=== PATIENT | female | born 1970 | race Two or more races ===

== ENCOUNTER 2020-01-26 18:54 | Inpatient (IN) | payer OTHER ==
[~2020-01-26] VITALS: Ht 167.6 cm; Wt 74.4 kg
--- NOTE | 2020-01-26 19:26 | NUR ---
pt out of er for ct
[2020-01-26 20:14] LABS: BASOPHILS % (AUTO) 0.6 % (0.0-2.0); EOSINOPHILS # (AUTO) 0.1 K/uL (0.0-0.7); EOSINOPHILS % (AUTO) 1.4 % (0.0-7.0); HEMATOCRIT 30.4 % (31.2-41.9); HEMOGLOBIN 9.9 g/dL (10.9-14.3); LYMPHOCYTES # (AUTO) 0.6 K/uL (20.0-40.0); LYMPHOCYTES % (AUTO) 8.9 % (20.5-51.5); MEAN CORPUSCULAR HEMOGLOBIN 31.8 uug (24.7-32.8); MEAN CORPUSCULAR HGB CONC 33 g/dL (32.3-35.6); MEAN CORPUSCULAR VOLUME 97.8 fL (75.5-95.3); MONOCYTES # (AUTO) 0.4 K/uL (2.0-10.0); MONOCYTES % (AUTO) 6.5 % (0.0-11.0); NEUTROPHILS # (AUTO) 5.6 K/uL (1.8-8.9); NEUTROPHILS % (AUTO) 82.6 % (38.5-71.5); PLATELET COUNT (AUTO) 139 K/uL (179-408); RED BLOOD CELL COUNT(AUTO) 3.11 MIL/uL (3.63-4.92); WHITE BLOOD COUNT (AUTO) 6.7 K/uL (3.8-11.8)
[2020-01-26 20:20] LABS: CREATININE 5.9 mg/dL (0.6-1.3)
[2020-01-26 20:26] LABS: BILIRUBIN,DIRECT 0.2 mg/dL (0.0-0.2); BILIRUBIN,TOTAL 0.6 mg/dL (0.2-1.0); TOTAL PROTEIN, SERUM 7.5 g/dL (6.4-8.2)
[2020-01-26] MEDS ORDERED: SODIUM BICARBONATE 8.4% 50 MEQ/50 ML DISP.SYRIN IV ONE ×2 (20:30→20:40)
[2020-01-26] MEDS ORDERED: FUROSEMIDE 20 MG/2 ML VIAL IVP ONE (20:30)
[2020-01-26 20:35] LABS: MAGNESIUM 2.6 mg/dL (1.8-2.4); PHOSPHOROUS 2.2 mg/dL (2.5-4.9)
[2020-01-26] MEDS ORDERED: FUROSEMIDE 20 MG/2 ML VIAL ONE (20:39)
[2020-01-26] MEDS ORDERED: SODIUM POLYSTYRENE SULFONATE 15 G/60 ML LIQUID UDC ONE (20:39)
--- NOTE | 2020-01-26 20:43 | NUR ---
MD CHILDS PAGED AT THIS TIME, FIRST ATTEMPT
[2020-01-26] MEDS ORDERED: MAGNESIUM HYDROXIDE 30 ML LIQUID UDC PO PRN (20:45)
[2020-01-26] MEDS ORDERED: ACETAMINOPHEN 325 MG TABLET PO PRN (20:45)
[2020-01-26] MEDS ORDERED: DEXTROSE 50% 50 ML DISP.SYRIN IV PRN (20:45)
[2020-01-26] MEDS ORDERED: INSULIN REGULAR, HUMAN 300 UNITS/3 ML VIAL SQ PRN (20:45)
[2020-01-26] MEDS ORDERED: Z GUARD REMEDY PASTE 57 GM TUBE TOP PRN (20:45)
[2020-01-26] MEDS ORDERED: HYDROCODONE/APAP 5-325MG TABLET PO PRN (20:45)
[2020-01-26] MEDS ORDERED: ONDANSETRON 4 MG/2 ML VIAL IV PRN (20:45)
[2020-01-26] MEDS: SODIUM POLYSTYRENE SULFONATE 15 G/60 ML LIQUID UDC PO ONE ×2 (20:59→22:00)
--- NOTE | 2020-01-26 21:45 | NUR ---
report given to derian baires
--- NOTE | 2020-01-26 22:17 | NUR ---
Pt. admitted to Tele Room 318 , under care of Dr. Villa Belongs List completed. All belongings with pt aa/o x2-3 no s/s of distress respirations even and unlabored transported via gurney with 2 RNs
[2020-01-26 22:26] VITALS: BP 164/72
[2020-01-26] MEDS: BLOOD SUGAR DIAGNOSTIC 1 EACH STRIP VI SCH (22:44)
--- NOTE | 2020-01-26 22:45 | NUR ---
patient refused to be swabbed for MRSA.
[2020-01-27 00:44] VITALS: BP 150/61
[2020-01-27 05:21] VITALS: BP 169/73
[2020-01-27 06:32] LABS: BASOPHILS # (AUTO) 0.1 K/uL (0.0-8.0); BASOPHILS % (AUTO) 0.8 % (0.0-2.0); EOSINOPHILS # (AUTO) 0.1 K/uL (0.0-0.7); HEMATOCRIT 30.1 % (31.2-41.9); LYMPHOCYTES # (AUTO) 0.8 K/uL (20.0-40.0); LYMPHOCYTES % (AUTO) 13.1 % (20.5-51.5); MEAN CORPUSCULAR HEMOGLOBIN 32.4 uug (24.7-32.8); MEAN CORPUSCULAR HGB CONC 33 g/dL (32.3-35.6); MEAN CORPUSCULAR VOLUME 96.9 fL (75.5-95.3); MONOCYTES # (AUTO) 0.5 K/uL (2.0-10.0); MONOCYTES % (AUTO) 8.1 % (0.0-11.0); NEUTROPHILS # (AUTO) 4.9 K/uL (1.8-8.9); PLATELET COUNT (AUTO) 137 K/uL (179-408); WHITE BLOOD COUNT (AUTO) 6.4 K/uL (3.8-11.8)
[2020-01-27] MEDS: BLOOD SUGAR DIAGNOSTIC 1 EACH STRIP VI SCH ×4 (06:43→20:54)
[2020-01-27 06:48] LABS: CREATININE 6.2 mg/dL (0.6-1.3); MAGNESIUM 2.7 mg/dL (1.8-2.4); POTASSIUM 5.4 mmol/L (3.5-5.1)
--- NOTE | 2020-01-27 08:28 | NUR ---
seen by dr vital, aware right eye redness ,will order med, pending dialysis today.
[2020-01-27 11:20] VITALS: BP 161/82
[2020-01-27] MEDS ORDERED: SERT50TA PO (11:28)
[2020-01-27] MEDS ORDERED: MAG30ORA PO (11:28)
[2020-01-27] MEDS ORDERED: CARV12.5 PO (11:28)
[2020-01-27] MEDS ORDERED: ASCO-375 PO (11:28)
[2020-01-27] MEDS ORDERED: GLUC1KIT IM (11:28)
[2020-01-27] MEDS ORDERED: GABA-532 PO (11:28)
[2020-01-27] MEDS ORDERED: AMLO5TAB4 PO (11:28)
[2020-01-27] MEDS ORDERED: VIT1TABL46 PO (11:28)
[2020-01-27] MEDS ORDERED: ASPI81TA31 PO (11:28)
[2020-01-27] MEDS ORDERED: FERR325T28 PO (11:28)
[2020-01-27] MEDS ORDERED: DOCU100C36 PO (11:28)
[2020-01-27] MEDS ORDERED: PANT40TA2 PO (11:28)
[2020-01-27] MEDS ORDERED: ZINC1CAP2 PO (11:28)
[2020-01-27] MEDS ORDERED: PROT946L PO (11:28)
[2020-01-27] MEDS ORDERED: CLON0.1T PO (11:28)
[2020-01-27] MEDS ORDERED: ATOR80TA PO (11:28)
[2020-01-27] MEDS ORDERED: LEVO50TA8 PO (11:28)
[2020-01-27] MEDS ORDERED: ACET650T10 PO (11:28)
[2020-01-27] MEDS ORDERED: SEVE800T8 PO (11:28)
--- NOTE | 2020-01-27 11:30 | NUR ---
dialysis done, tolerated well 2l . Addendum: 01/27/20 at 1145 by JAMIE GOODE RN obtained from dialysis, 21 liters
--- NOTE | 2020-01-27 11:39 | NUR ---
refused mrsa swab , meds reconceliation discussed, agreed with dr vital aware.
[2020-01-27] MEDS ORDERED: DOCUSATE SODIUM 100 MG CAPSULE PO PRN (14:00)
--- NOTE | 2020-01-27 15:00 | NUR ---
sleeping well. no distress noted
[2020-01-27] MEDS: CLONIDINE HCL 0.1 MG TABLET PO PRN (15:32)
[2020-01-27] MEDS: GABAPENTIN 100 MG CAPSULE PO SCH (15:32)
[2020-01-27 15:39] VITALS: BP 178/74
[2020-01-27] MEDS: NEO/POLYMYX B/DEXAM OPHT DROP 5 ML BOTTLE EACHEYE SCH (17:34)
[2020-01-27] MEDS: SEVELAMER CARBONATE 800 MG TABLET PO SCH (17:36)
--- NOTE | 2020-01-27 18:21 | NUR ---
sleeping on and off, resting well. anxious to go home, emotional support provided. prn calls from family, supportive of patient care, pt glad of call.
--- NOTE | 2020-01-27 20:00 | NUR ---
PATIENT RECEIVED INTO CARE, LAYING IN BED, WATCHING TELEVISION. PATIENT IS ALERT/ORIENTED X3 AND HAS NO COMPLAINTS OF PAIN OR DISCOMFORT AT THIS TIME. ALL SAFETY AND FALL PRECAUTION MEASURES ARE IN PLACE. CALL LIGHT AND PERSONAL ITEMS ARE WITHIN REACH. WILL CONTINUE TO MONITOR AND ASSESS.
[2020-01-27 20:05] VITALS: BP 181/75
[2020-01-27] MEDS: CARVEDILOL 12.5 MG TABLET PO SCH (20:55)
[2020-01-27] MEDS: INSULIN REGULAR, HUMAN 300 UNIT/3 ML VIAL SQ PRN (20:55)
[2020-01-27] MEDS: SERTRALINE HCL 50 MG TABLET PO SCH (20:56)
[2020-01-27] MEDS: ATORVASTATIN 40 MG TABLET PO SCH (20:56)
[2020-01-27] MEDS: AMLODIPINE 5 MG TABLET PO SCH (20:56)
--- NOTE | 2020-01-27 20:56 | NUR ---
Patient refused all 2100h medications. This nurse used translation phone to explain the risks/benefits of medications three times, but patient still refused stating she 'won't ' if she doesn't take the medications.
--- NOTE | 2020-01-27 23:45 | NUR ---
This nurse was notified by HANDMADE TILE ARTIST of elevated blood pressure reading for pt during 12mn rounds. This nurse, with the help of scientist/engineer phone, was able to convince pt to take her previously refused 2100h medications, which included coreg 12.mg and norvasc 5mg. Will continue to monitor and assess.
[2020-01-28] VITALS: BP 180/80
[2020-01-28] MEDS: NEO/POLYMYX B/DEXAM OPHT DROP 5 ML BOTTLE EACHEYE SCH ×5 (00:12→23:34)
[2020-01-28 04:30] VITALS: BP 167/67
--- NOTE | 2020-01-28 05:00 | NUR ---
Patient slept intermittently throughout night with no complaints of pain or discomfort verbalized by patient or noted/observed by this nurse. Initially pt refused to take her scheduled 2100h prescribed medications, which included blood pressure medicine, however, pt agreed to take later in the evening when blood pressure was elevated for 12mn rounds. Pt also refused to take prescribed 2100h sliding scale insulin for blood sugar of 138. All safety and fall precaution measures are in place. Call light and personal items remain within reach.
[2020-01-28] MEDS: CLONIDINE HCL 0.1 MG TABLET PO PRN (05:49)
--- NOTE | 2020-01-28 05:54 | NUR ---
This nurse was notified by RUG SETTER VELVET regarding pt's elevated blood pressure of 167/67. This nurse reassessed blood pressure and found it to be 174/75 HR 70. This nurse provided pt with prescribed PRN clonidine for elevated diastolic BP >160. Will continue to monitor and assess.
[2020-01-28] MEDS: BLOOD SUGAR DIAGNOSTIC 1 EACH STRIP VI SCH ×4 (06:32→21:01)
[2020-01-28] MEDS: LEVOTHYROXINE SODIUM 50 MCG TABLET PO SCH (06:32)
--- NOTE | 2020-01-28 06:46 | NUR ---
This nurse reassessed pt's blood pressure following administration of prescribed clonidine. Blood pressure is now 150/69 HR 65. Clonidine effective in lowering blood pressure.
[2020-01-28 06:47] VITALS: BP 150/69
--- NOTE | 2020-01-28 08:00 | NUR ---
RECEIVED PATIENT LAYING IN BED, AWAKE, ALERT AND ORIENTED. NO SIGNS OF RESPIRATORY DISTRESS AT THIS TIME, PATIENT IS SATURATING WELL ON ROOM AIR. PATIENT HAS NO COMPLAINTS OF PAIN OR DISCOMFORT AT THIS TIME. IV PATENT AND INTACT NOT BEING USED ON LEFT HAND 20 GAUGE AND ALSO A RT UPPER ARM FISTULA. PATIENT HAS SOME DISCOLORATION ON BILATERAL LOWER EXTREMITY. ALL SAFETY AND FALL PRECAUTION MEASURES ARE IN PLACE. CALL LIGHT AND PERSONAL ITEMS ARE WITHIN REACH. WILL CONTINUE TO MONITOR AND ASSESS.
[2020-01-28] MEDS: FOLIC ACID/VITAMIN B COMP W-C TABLET PO SCH (09:03)
[2020-01-28] MEDS: ASCORBIC ACID 500 MG TABLET PO SCH (09:03)
[2020-01-28] MEDS: AMLODIPINE 5 MG TABLET PO SCH ×2 (09:07→20:58)
[2020-01-28] MEDS: CARVEDILOL 12.5 MG TABLET PO SCH ×2 (09:07→20:59)
[2020-01-28] MEDS: ZINC SULFATE 220 MG CAPSULE PO SCH (09:07)
[2020-01-28] MEDS: GABAPENTIN 100 MG CAPSULE PO SCH ×3 (09:08→18:05)
[2020-01-28] MEDS: SEVELAMER CARBONATE 800 MG TABLET PO SCH ×3 (09:08→18:04)
[2020-01-28] MEDS: ASPIRIN 81 MG TAB.CHEW PO SCH (09:08)
[2020-01-28] MEDS: FERROUS SULFATE 325 MG TABEC PO SCH (09:08)
[2020-01-28] MEDS: PANTOPRAZOLE SODIUM 40 MG TABLET.DR PO SCH (09:09)
[2020-01-28 10:26] VITALS: BP 148/62
--- NOTE | 2020-01-28 11:36 | NUR ---
GAVE REPORT TO ESTRELLA AND PATIENT TRANSFERRED OUT OF [facility] ISOLATION AREA.
[2020-01-28] MEDS: INSULIN REGULAR, HUMAN 300 UNIT/3 ML VIAL SQ PRN ×2 (12:08→18:09)
[2020-01-28 14:07] LABS: HEPATITIS B SURFACE AB Reactive (.); HEPATITIS B SURFACE AG Negative (Negative)
--- NOTE | 2020-01-28 14:11 | NUR ---
pt. is getting dialysis at this time. pt. in stable condition
[2020-01-28 15:46] VITALS: BP 143/62
--- NOTE | 2020-01-28 19:30 | NUR ---
Received patient lying in bed. Asleep but easily arouse to verbal stimuli. Haitian speaking. Appears calm and comfortable. Denies any pain or SOB at this time. Right FA fistula intact. Left hand IV site intact and patent. Needs assessed and attended to. Safety measure initiated and call noel within reached.
--- NOTE | 2020-01-28 19:35 | NUR ---
Patient NSR on tele at 60/min.
[2020-01-28 19:59] VITALS: BP 151/57
[2020-01-28] MEDS: ATORVASTATIN 40 MG TABLET PO SCH (20:57)
[2020-01-28] MEDS: SERTRALINE HCL 50 MG TABLET PO SCH (20:58)
[2020-01-29 00:14] VITALS: BP 164/61
[2020-01-29 04:55] VITALS: BP 153/70
--- NOTE | 2020-01-29 05:59 | NUR ---
Patient AAOX4. Slept well last night. Denies any pain or SOB. NSR and sinus dalia on tele at bet. 60 to high 50's./min. Right FA fistula intact. Left hand IV site intact and patent. Safety measure maintained and call noel within reached.
[2020-01-29 06:07] LABS: BASOPHILS # (AUTO) 0.1 K/uL (0.0-8.0); BASOPHILS % (AUTO) 1.2 % (0.0-2.0); EOSINOPHILS # (AUTO) 0.2 K/uL (0.0-0.7); EOSINOPHILS % (AUTO) 3.1 % (0.0-7.0); HEMATOCRIT 28.6 % (31.2-41.9); HEMOGLOBIN 9.5 g/dL (10.9-14.3); LYMPHOCYTES # (AUTO) 0.7 K/uL (20.0-40.0); LYMPHOCYTES % (AUTO) 13.7 % (20.5-51.5); MEAN CORPUSCULAR HGB CONC 33 g/dL (32.3-35.6); MEAN CORPUSCULAR VOLUME 96.3 fL (75.5-95.3); MONOCYTES # (AUTO) 0.3 K/uL (2.0-10.0); MONOCYTES % (AUTO) 7.1 % (0.0-11.0); NEUTROPHILS # (AUTO) 3.7 K/uL (1.8-8.9); NEUTROPHILS % (AUTO) 74.9 % (38.5-71.5); PLATELET COUNT (AUTO) 88 K/uL (179-408); RED BLOOD CELL COUNT(AUTO) 2.97 MIL/uL (3.63-4.92); WHITE BLOOD COUNT (AUTO) 4.9 K/uL (3.8-11.8)
[2020-01-29] MEDS: NEO/POLYMYX B/DEXAM OPHT DROP 5 ML BOTTLE EACHEYE SCH ×3 (06:07→17:30)
[2020-01-29 06:13] LABS: CREATININE 4.6 mg/dL (0.6-1.3)
[2020-01-29] MEDS: LEVOTHYROXINE SODIUM 50 MCG TABLET PO SCH (06:30)
[2020-01-29] MEDS: BLOOD SUGAR DIAGNOSTIC 1 EACH STRIP VI SCH ×3 (06:31→16:30)
--- NOTE | 2020-01-29 08:00 | NUR ---
received pt. resting in bed alert oriented x3 romanian speaking. pt. denies pain/ discomfort. pt. denies SOB/ difficulty breathing. pt. on room air saturating well. pt. took all AM medication and is eating breakfast. safety measures in place. call light within reach. will continue to monitor pt.
[2020-01-29] MEDS: PANTOPRAZOLE SODIUM 40 MG TABLET.DR PO SCH (08:09)
[2020-01-29] MEDS: FERROUS SULFATE 325 MG TABEC PO SCH (08:09)
[2020-01-29] MEDS: ZINC SULFATE 220 MG CAPSULE PO SCH (08:09)
[2020-01-29] MEDS: SEVELAMER CARBONATE 800 MG TABLET PO SCH ×3 (08:09→17:28)
[2020-01-29] MEDS: GABAPENTIN 100 MG CAPSULE PO SCH ×3 (08:09→17:28)
[2020-01-29] MEDS: FOLIC ACID/VITAMIN B COMP W-C TABLET PO SCH (08:09)
[2020-01-29] MEDS: ASCORBIC ACID 500 MG TABLET PO SCH (08:09)
[2020-01-29] MEDS: ASPIRIN 81 MG TAB.CHEW PO SCH (08:10)
[2020-01-29] MEDS: AMLODIPINE 5 MG TABLET PO SCH (08:10)
[2020-01-29] MEDS: CARVEDILOL 12.5 MG TABLET PO SCH (08:12)
[2020-01-29 11:42] VITALS: BP 169/71
[2020-01-29] MEDS: CLONIDINE HCL 0.1 MG TABLET PO PRN (15:47)
[2020-01-29 16:00] VITALS: BP 160/71
--- NOTE | 2020-01-29 17:40 | NUR ---
pt. discharged back to [facility]. IV removed. ID band removed. all belongings with pt. all discharge paperwork with pt. pt. in stable condition.
== END 2020-01-29 17:45 | DRG 425 ==
LOC: ER 19:03 → TELE3 21:38
PROVIDERS: ADMIT Internal Medicine; ATTEND Internal Medicine
PROC: 5A1D70Z Performance of Urinary Filtration, Intermittent, Less than 6 Hours Per Day (ICD-10-PCS; principal; 2020-01-27)
DX: E87.5 Hyperkalemia (principal); E11.22 Type 2 diabetes mellitus with diabetic chronic kidney disease; N18.6 End stage renal disease; Z99.2 Dependence on renal dialysis; Z91.15 Patient's noncompliance with renal dialysis; Z79.4 Long term (current) use of insulin; D63.1 Anemia in chronic kidney disease; E83.39 Other disorders of phosphorus metabolism; E83.41 Hypermagnesemia; E78.5 Hyperlipidemia, unspecified; Z86.19 Personal history of other infectious and parasitic diseases; E03.9 Hypothyroidism, unspecified; Z86.73 Personal history of transient ischemic attack (TIA), and cerebral infarction without residual deficits; G93.49 Other encephalopathy; N25.0 Renal osteodystrophy; E87.79 Other fluid overload
CPT/HCPCS: 36415; 70030-TC; 70450; 71045; 83690; 83735; 84100; 85025; 85730; 86706; 87340; 90937; 93005; A4663; G0378; J1815; J1940; J3490; J3590

== ENCOUNTER 2020-04-19 21:51 | Inpatient (IN) | payer OTHER ==
[~2020-04-19] VITALS: Ht 165.1 cm; Wt 70.8 kg
[~2020-04-19 21:51] MED LIST: ACET650T10 PO; AMLO5TAB4 PO; ASCO-375 PO; ASPI81TA31 PO; ATOR80TA PO; CARV12.5 PO; CLON0.1T PO; DOCU100C36 PO; FERR325T28 PO; GABA-532 PO; GLUC1KIT IM; LEVO50TA8 PO; MAG30ORA PO; PANT40TA2 PO; PROT946L PO; SERT50TA PO; SEVE800T8 PO; VIT1TABL46 PO; ZINC1CAP2 PO
--- NOTE | 2020-04-19 21:57 | NUR ---
at bedside for assessment
--- NOTE | 2020-04-19 22:15 | NUR ---
Xray at bedside.
[2020-04-19] MEDS ORDERED: INSU100V28 SQ (22:27)
[2020-04-19] MEDS ORDERED: CALC0.5C3 PO (22:27)
[2020-04-19] MEDS ORDERED: PHOS NAK PO (22:27)
[2020-04-19] MEDS ORDERED: DEXT50DI8 IV (22:27)
[2020-04-19 22:35] LABS: ABG PH 7.524 (7.350-7.450); ABG PO2 65.8 mmHg (75.0-100.0); ABG SITE LEFT BRACHIAL; ABG TOTAL HEMOGLOBIN 10.7 G/dL (12.0-16.0); COHb 1.5 % (0.5-1.5); MetHb 0.2 % (0.0-1.5); O2Hb 92.9 % (94.0-97.0); VENT MODE Nasal Cannula
--- NOTE | 2020-04-19 22:40 | NUR ---
Per ABG results, pt O2 flow via N/C increased to 6LPM. RN MT aware/notified. No resp. distress noted.
[2020-04-19 23:47] LABS: BASOPHILS % (AUTO) 0.8 % (0.0-2.0); EOSINOPHILS # (AUTO) 0.1 K/uL (0.0-0.7); EOSINOPHILS % (AUTO) 1.4 % (0.0-7.0); HEMATOCRIT 32.8 % (31.2-41.9); HEMOGLOBIN 10.7 g/dL (10.9-14.3); LYMPHOCYTES # (AUTO) 0.6 K/uL (20.0-40.0); LYMPHOCYTES % (AUTO) 10.5 % (20.5-51.5); MEAN CORPUSCULAR HEMOGLOBIN 31.8 uug (24.7-32.8); MEAN CORPUSCULAR HGB CONC 33 g/dL (32.3-35.6); MEAN CORPUSCULAR VOLUME 97.7 fL (75.5-95.3); MONOCYTES # (AUTO) 0.5 K/uL (2.0-10.0); MONOCYTES % (AUTO) 8.2 % (0.0-11.0); NEUTROPHILS # (AUTO) 4.7 K/uL (1.8-8.9); NEUTROPHILS % (AUTO) 79.1 % (38.5-71.5); PLATELET COUNT (AUTO) 104 K/uL (179-408); RED BLOOD CELL COUNT(AUTO) 3.36 MIL/uL (3.63-4.92); WHITE BLOOD COUNT (AUTO) 5.9 K/uL (3.8-11.8)
[2020-04-19 23:54] LABS: CREATININE 3.8 mg/dL (0.6-1.3); POTASSIUM 4.9 mmol/L (3.5-5.1)
[2020-04-20 00:12] LABS: BILIRUBIN,TOTAL 0.4 mg/dL (0.2-1.0); TOTAL PROTEIN, SERUM 7.6 g/dL (6.4-8.2)
--- NOTE | 2020-04-20 00:30 | NUR ---
Patientnoted resting in bed, no changes noted
[2020-04-20] MEDS ORDERED: IV NORMAL SALINE 250 ML IV ONE (01:33)
[2020-04-20] MEDS ORDERED: IOHEXOL 350 100 ML INFUS..BTL ONE (01:33)
[2020-04-20] MEDS ORDERED: SWABABLE VALVE TRANSFER SET EA MC ONE (01:33)
--- NOTE | 2020-04-20 02:58 | NUR ---
GFR 13; CREAT 3.8 (H); BUN 16 NEED RADIOLOGIST APPROVAL, TALKED TO OCTAVIO. ALSO CONFIRM TO CONTACT RADIOLOGIST @ 01:24 COMMUNICATED WITH @01:30 TO PERFORM CTA CHEST ANGIO. CALL BACK NUMBER NOTES ABOUT PATIENT COMMUNICATED WITH : PATIENT IS END STAGE RENAL DISEASE: PER DR CUNNINGHAM HERE FOR VOLUME OVER LOUD; PER DR CUNNINGHAM R/O PE; PER DR CUNNINGHAM DIALYZED WILL BE PERFORMED TODAY; PER DR CUNNINGHAM 53CC OF OMNIPAQUE @ A RATE OF 2CC/SEC WAS ADMINISTERED VIA IV ON THE LEFT ANTECUBITAL REGION.
--- NOTE | 2020-04-20 03:20 | NUR ---
Patient admitted on tele floor under the care of Curtis Baron NP. Patient speak Cypriot but understand some Syrian. Patient alert oriented, no sob no chest pain, on 4LPM NC oxygen for sob during ADL's. Patient has R side weakness due hx of CVA, with R upper arm fistula, patient also legally blind, BP was elevated, will medicate as ordered. cont to monitor.
--- NOTE | 2020-04-20 03:20 | NUR ---
Pt. admitted to Tele, under care of Dr. Baron Belongs List completed and all belongings sent wit patient, continues on 4 liters nasal cannula, no signs of acute distress noted
[2020-04-20 03:30] VITALS: BP 184/82
[2020-04-20] MEDS ORDERED: DEXTROSE 50% 50 ML DISP.SYRIN IV SCH (03:30)
[2020-04-20] MEDS ORDERED: DEXTROSE 50% 50 ML DISP.SYRIN IV PRN (03:30)
[2020-04-20] MEDS ORDERED: Z GUARD REMEDY PASTE 57 GM TUBE TOP PRN (03:30)
[2020-04-20] MEDS ORDERED: ACETAMINOPHEN 325 MG TABLET PO PRN (03:30)
[2020-04-20] MEDS ORDERED: DOCUSATE SODIUM 100 MG CAPSULE PO PRN (03:30)
[2020-04-20] MEDS ORDERED: ONDANSETRON 4 MG/2 ML VIAL IV PRN (03:30)
[2020-04-20 04:00] VITALS: BP 122/65
[2020-04-20] MEDS: CLONIDINE HCL 0.1 MG TABLET PO PRN (04:22)
[2020-04-20] MEDS: BLOOD SUGAR DIAGNOSTIC 1 EACH STRIP VI SCH ×5 (04:42→21:04)
[2020-04-20] MEDS: PANTOPRAZOLE SODIUM 40 MG TABLET.DR PO SCH (06:07)
[2020-04-20] MEDS: LEVOTHYROXINE SODIUM 50 MCG TABLET PO SCH (06:07)
[2020-04-20 06:18] LABS: BASOPHILS % (AUTO) 0.8 % (0.0-2.0); EOSINOPHILS # (AUTO) 0.1 K/uL (0.0-0.7); EOSINOPHILS % (AUTO) 1.9 % (0.0-7.0); HEMOGLOBIN 9.5 g/dL (10.9-14.3); LYMPHOCYTES # (AUTO) 0.8 K/uL (20.0-40.0); LYMPHOCYTES % (AUTO) 13.2 % (20.5-51.5); MEAN CORPUSCULAR HGB CONC 33 g/dL (32.3-35.6); MEAN CORPUSCULAR VOLUME 97.6 fL (75.5-95.3); MONOCYTES # (AUTO) 0.6 K/uL (2.0-10.0); MONOCYTES % (AUTO) 9.1 % (0.0-11.0); NEUTROPHILS # (AUTO) 4.6 K/uL (1.8-8.9); PLATELET COUNT (AUTO) 88 K/uL (179-408); RED BLOOD CELL COUNT(AUTO) 2.97 MIL/uL (3.63-4.92); WHITE BLOOD COUNT (AUTO) 6.2 K/uL (3.8-11.8)
[2020-04-20 06:25] LABS: CREATININE 3.9 mg/dL (0.6-1.3); MAGNESIUM 2.4 mg/dL (1.8-2.4); POTASSIUM 4.5 mmol/L (3.5-5.1)
[2020-04-20 07:53] LABS: THYROID STIMULATING HORMONE 5.108 mIU/mL (0.358-3.740)
[2020-04-20] MEDS: CARVEDILOL 12.5 MG TABLET PO SCH ×2 (08:06→20:50)
[2020-04-20] MEDS: ASCORBIC ACID 500 MG TABLET PO SCH (08:06)
[2020-04-20] MEDS: GABAPENTIN 100 MG CAPSULE PO SCH ×3 (08:06→16:26)
[2020-04-20] MEDS: SEVELAMER CARBONATE 800 MG TABLET PO SCH ×3 (08:06→17:02)
[2020-04-20] MEDS: AMLODIPINE 5 MG TABLET PO SCH ×2 (08:06→20:54)
[2020-04-20] MEDS: ASPIRIN 81 MG TAB.CHEW PO SCH (08:06)
[2020-04-20] MEDS: FERROUS SULFATE 325 MG TABEC PO SCH (08:06)
[2020-04-20] MEDS: ZINC SULFATE 220 MG CAPSULE PO SCH (08:06)
[2020-04-20] MEDS: ENOXAPARIN SODIUM 30 MG/0.3 ML DISP.SYRIN SQ SCH (08:23)
[2020-04-20] MEDS: CALCITRIOL 0.25 MCG CAPSULE PO SCH (08:23)
[2020-04-20] MEDS: INSULIN REGULAR, HUMAN 300 UNIT/3 ML VIAL SQ PRN (10:57)
[2020-04-20 12:45] VITALS: BP 159/60
--- NOTE | 2020-04-20 15:44 | NUR ---
dialysis done without any complication .2 litter out
[2020-04-20] MEDS: hydrALAZINE HCL 25 MG TABLET PO SCH ×2 (15:45→22:36)
[2020-04-20 16:52] VITALS: BP 101/56
--- NOTE | 2020-04-20 20:00 | NUR ---
Received patient in bed .Alert and awake kazakh speaking on room air with O2 At 2LPM via NC saturating well at 97%.Denies SOB.No respiratory distress noted.Av fistula on Right upper arm dressing intact.Iv site on Left forearm in place.No s/s of infiltration.Right sided weakness noted.All due meds given.Continue safety measures.Call light with in reach.Continue to monitor.
[2020-04-20 20:46] VITALS: BP 156/61
[2020-04-20] MEDS: ATORVASTATIN 40 MG TABLET PO SCH (20:49)
[2020-04-20] MEDS: SERTRALINE HCL 50 MG TABLET PO SCH (20:49)
[2020-04-21 05:26] VITALS: BP 140/64
[2020-04-21] MEDS: hydrALAZINE HCL 25 MG TABLET PO SCH ×3 (05:40→22:25)
--- NOTE | 2020-04-21 05:52 | NUR ---
Patient slept through out the night.Denies pain .No s/s of distress noted at this time.AV fistula on rt upper arm remain in place.Noted with swelling on the Rt arm.Elevated with pillow.All needs anticipated and met accordingly.Will endorse to oncoming shift.
[2020-04-21] MEDS: PANTOPRAZOLE SODIUM 40 MG TABLET.DR PO SCH (06:01)
[2020-04-21] MEDS: LEVOTHYROXINE SODIUM 50 MCG TABLET PO SCH (06:02)
[2020-04-21] MEDS: BLOOD SUGAR DIAGNOSTIC 1 EACH STRIP VI SCH ×4 (06:31→20:38)
[2020-04-21 07:15] LABS: BASOPHILS # (AUTO) 0.1 K/uL (0.0-8.0); BASOPHILS % (AUTO) 1.1 % (0.0-2.0); EOSINOPHILS # (AUTO) 0.1 K/uL (0.0-0.7); EOSINOPHILS % (AUTO) 2.3 % (0.0-7.0); HEMATOCRIT 28.8 % (31.2-41.9); HEMOGLOBIN 9.4 g/dL (10.9-14.3); LYMPHOCYTES # (AUTO) 0.6 K/uL (20.0-40.0); LYMPHOCYTES % (AUTO) 12.5 % (20.5-51.5); MEAN CORPUSCULAR HEMOGLOBIN 32.2 uug (24.7-32.8); MEAN CORPUSCULAR HGB CONC 33 g/dL (32.3-35.6); MEAN CORPUSCULAR VOLUME 98.4 fL (75.5-95.3); MONOCYTES # (AUTO) 0.4 K/uL (2.0-10.0); MONOCYTES % (AUTO) 7.2 % (0.0-11.0); NEUTROPHILS # (AUTO) 3.9 K/uL (1.8-8.9); NEUTROPHILS % (AUTO) 76.9 % (38.5-71.5); PLATELET COUNT (AUTO) 79 K/uL (179-408); RED BLOOD CELL COUNT(AUTO) 2.93 MIL/uL (3.63-4.92); WHITE BLOOD COUNT (AUTO) 5.1 K/uL (3.8-11.8)
[2020-04-21 07:25] LABS: CREATININE 3.8 mg/dL (0.6-1.3); MAGNESIUM 2.2 mg/dL (1.8-2.4); PHOSPHOROUS 2.6 mg/dL (2.5-4.9); POTASSIUM 4.7 mmol/L (3.5-5.1)
[2020-04-21] MEDS: GABAPENTIN 100 MG CAPSULE PO SCH ×3 (08:21→17:19)
[2020-04-21] MEDS: ASPIRIN 81 MG TAB.CHEW PO SCH (08:21)
[2020-04-21] MEDS: SEVELAMER CARBONATE 800 MG TABLET PO SCH ×3 (08:22→17:19)
[2020-04-21] MEDS: ASCORBIC ACID 500 MG TABLET PO SCH (08:22)
[2020-04-21] MEDS: ZINC SULFATE 220 MG CAPSULE PO SCH (08:22)
[2020-04-21] MEDS: FERROUS SULFATE 325 MG TABEC PO SCH (08:22)
[2020-04-21] MEDS: CALCITRIOL 0.25 MCG CAPSULE PO SCH (08:27)
[2020-04-21] MEDS: AMLODIPINE 5 MG TABLET PO SCH ×2 (08:27→20:44)
[2020-04-21] MEDS: CARVEDILOL 12.5 MG TABLET PO SCH ×2 (08:27→20:44)
--- NOTE | 2020-04-21 08:30 | NUR ---
RECEIVED PATIENT ASLEEP IN BED, EASILY AROUSABLE BY NAME. ORIENTED 2-3, KINYARWANDA SPEAKING BUT FOLLOWS COMMAND. ON 2L NC, SATURATION WNL. NO S/S OF DISTRESS NOTED AT THIS TIME. R UPPER ARM AV SHUNT IN PLACE, BRUIT PRESENT. IV ON LEFT FOREARM 20 G, INTACT AND PATENT. NOTIFIED RAILWAY SIGNAL OPERATOR OF FLUID RESTRICTION S/T FLUID OVERLOAD. SAFETY PRECAUTIONS IN PLACE. WILL CONTINUE TO MONITOR.
[2020-04-21 11:32] VITALS: BP 142/79
[2020-04-21] MEDS: INSULIN REGULAR, HUMAN 300 UNIT/3 ML VIAL SQ PRN (11:37)
[2020-04-21] MEDS: ENOXAPARIN SODIUM 30 MG/0.3 ML DISP.SYRIN SQ SCH (12:35)
[2020-04-21 15:57] VITALS: BP 137/62
--- NOTE | 2020-04-21 16:00 | NUR ---
DIALYSIS DONE. 2000 CC OUTPUT. PATIENT TOLERATED DIALYSIS. RIGHT UPPER ARM AV SHUNT INTACT. NO S/S OF BLEEDING OR DISTRESS NOTED AT THIS TIME.
--- NOTE | 2020-04-21 20:00 | NUR ---
RECEIVED PATIENT AWAKE IN BED. A/O X3. MOROCCAN SPEAKING WITH MINIMAL WOLOF. ABLE TO MAKE NEEDS KNOWN. DENIES PAIN OR DISCOMFORT. H/L INTACT AND PATENT. BED ALARM ON. CALL LIGHT IN REACH. ALL NEED ATTENDED. WILL CONTINUE TO MONITOR.
[2020-04-21] MEDS: ATORVASTATIN 40 MG TABLET PO SCH (20:43)
[2020-04-21] MEDS: SERTRALINE HCL 50 MG TABLET PO SCH (20:43)
[2020-04-21] MEDS: CLONIDINE HCL 0.1 MG TABLET PO PRN (20:43)
[2020-04-21 20:54] VITALS: BP 165/50
[2020-04-22] MEDS: hydrALAZINE HCL 25 MG TABLET PO SCH ×3 (05:48→22:42)
[2020-04-22 06:13] VITALS: BP 146/58
[2020-04-22] MEDS: PANTOPRAZOLE SODIUM 40 MG TABLET.DR PO SCH (06:24)
[2020-04-22] MEDS: LEVOTHYROXINE SODIUM 50 MCG TABLET PO SCH (06:24)
[2020-04-22] MEDS: BLOOD SUGAR DIAGNOSTIC 1 EACH STRIP VI SCH ×4 (06:25→21:40)
--- NOTE | 2020-04-22 06:51 | NUR ---
PATIENT ASLEEP IN BED. EASILY AROUSABLE. SLEPT WELL THROUGHOUT THE NIGHT. BED ALARM ON. CALL LIGHT IN REACH. ALL NEEDS ATTENDED. WILL CONTINUE TO MONITOR AND ASSESS.
--- NOTE | 2020-04-22 08:00 | NUR ---
PT edema noted +2 on LE's. PT on o2 @ 3lit via n/c. Pt Breathing diminished. Kept pt HOB elevated @90 for breakfast. AV shunt on right arm bruit present. IV on left AC intact flushed without any resistance. Call light is within reach.
[2020-04-22] MEDS: SEVELAMER CARBONATE 800 MG TABLET PO SCH ×3 (08:58→17:12)
[2020-04-22] MEDS: FERROUS SULFATE 325 MG TABEC PO SCH (08:58)
[2020-04-22] MEDS: ASCORBIC ACID 500 MG TABLET PO SCH (08:58)
[2020-04-22] MEDS: GABAPENTIN 100 MG CAPSULE PO SCH ×3 (08:59→16:42)
[2020-04-22] MEDS: ZINC SULFATE 220 MG CAPSULE PO SCH (08:59)
[2020-04-22] MEDS: ASPIRIN 81 MG TAB.CHEW PO SCH (08:59)
[2020-04-22] MEDS: CARVEDILOL 12.5 MG TABLET PO SCH ×2 (09:00→21:00)
[2020-04-22] MEDS: AMLODIPINE 5 MG TABLET PO SCH ×2 (09:04→21:40)
[2020-04-22] MEDS: CLONIDINE HCL 0.1 MG TABLET PO PRN (09:07)
--- NOTE | 2020-04-22 10:00 | NUR ---
Veronique Hubbard notified that plt was around 70's and that lovenox was held. Per LW. ok to give lovenox if todays plt was greater than 40's. Awaiting blood test results.
[2020-04-22 10:22] LABS: BASOPHILS # (AUTO) 0.1 K/uL (0.0-8.0); EOSINOPHILS # (AUTO) 0.1 K/uL (0.0-0.7); EOSINOPHILS % (AUTO) 2.2 % (0.0-7.0); HEMATOCRIT 29.2 % (31.2-41.9); HEMOGLOBIN 9.4 g/dL (10.9-14.3); LYMPHOCYTES # (AUTO) 0.6 K/uL (20.0-40.0); LYMPHOCYTES % (AUTO) 10.7 % (20.5-51.5); MEAN CORPUSCULAR HEMOGLOBIN 31.8 uug (24.7-32.8); MEAN CORPUSCULAR HGB CONC 32 g/dL (32.3-35.6); MEAN CORPUSCULAR VOLUME 99.2 fL (75.5-95.3); MONOCYTES # (AUTO) 0.4 K/uL (2.0-10.0); MONOCYTES % (AUTO) 7.7 % (0.0-11.0); NEUTROPHILS # (AUTO) 4.3 K/uL (1.8-8.9); NEUTROPHILS % (AUTO) 78.4 % (38.5-71.5); PLATELET COUNT (AUTO) 71 K/uL (179-408); RED BLOOD CELL COUNT(AUTO) 2.94 MIL/uL (3.63-4.92); WHITE BLOOD COUNT (AUTO) 5.5 K/uL (3.8-11.8)
[2020-04-22 10:47] LABS: CREATININE 3.9 mg/dL (0.6-1.3); MAGNESIUM 2.5 mg/dL (1.8-2.4); PHOSPHOROUS 2.4 mg/dL (2.5-4.9); POTASSIUM 4.9 mmol/L (3.5-5.1)
[2020-04-22 11:43] VITALS: BP 152/57
[2020-04-22] MEDS: CALCITRIOL 0.25 MCG CAPSULE PO SCH (12:21)
[2020-04-22] MEDS: ENOXAPARIN SODIUM 30 MG/0.3 ML DISP.SYRIN SQ SCH (12:24)
[2020-04-22] MEDS: INSULIN REGULAR, HUMAN 300 UNIT/3 ML VIAL SQ PRN ×2 (12:59→17:14)
--- NOTE | 2020-04-22 15:30 | NUR ---
Dr Fagan here to see pt notified of elevated SBP's @ 150's pt asymptomatic. No new orders received. Will continue to monitor patient. Call light is within reach.
[2020-04-22 16:00] VITALS: BP 150/53
--- NOTE | 2020-04-22 18:28 | NUR ---
Current b/p 152/58- hr or 57. Call light is within reach. pt denies any c/o pain. Call light is within reach.
--- NOTE | 2020-04-22 20:00 | NUR ---
Received patient in bed. AAOx2-3. NO s/s of acute distress noted. Pt on 3L NC, denies SOB. Left forearm IV patent and intact. Bed locked and alarm on. Safety measures in place and will continue to monitor.
[2020-04-22 20:40] VITALS: BP 150/45
--- NOTE | 2020-04-22 21:15 | NUR ---
Held Coreg due to pt HR of 51. Will continue to monitor.
[2020-04-22 21:35] VITALS: BP 161/66
[2020-04-22] MEDS: SERTRALINE HCL 50 MG TABLET PO SCH (21:40)
[2020-04-22] MEDS: ATORVASTATIN 40 MG TABLET PO SCH (21:40)
[2020-04-23] MEDS: hydrALAZINE HCL 25 MG TABLET PO SCH (05:10)
[2020-04-23 05:58] VITALS: BP 145/58
--- NOTE | 2020-04-23 06:08 | NUR ---
Patient slept well throughout the night. No s/s of acute distress. Pt is on 3L/min NC. Denies SOB. Right AV fistula intact and bruit present upon palpation. Left FA IV patent and intact hep lock. HOB elevated and bed locked and in lowest position, alarm on. Safety measures in place and will be endorsed to on coming shift.
[2020-04-23] MEDS: PANTOPRAZOLE SODIUM 40 MG TABLET.DR PO SCH ×2 (06:23→06:32)
[2020-04-23] MEDS: LEVOTHYROXINE SODIUM 50 MCG TABLET PO SCH ×2 (06:23→06:33)
[2020-04-23] MEDS: BLOOD SUGAR DIAGNOSTIC 1 EACH STRIP VI SCH ×2 (06:31→10:40)
--- NOTE | 2020-04-23 07:00 | NUR ---
Received patient in bed. AAOx2-3. NO s/s of acute distress noted. Pt on 2 L NC, denies SOB. Left forearm IV patent and intact. Bed locked and alarm on. Safety measures in place and will continue to monitor.call light with in reach
[2020-04-23 07:02] LABS: BASOPHILS % (AUTO) 0.7 % (0.0-2.0); EOSINOPHILS # (AUTO) 0.1 K/uL (0.0-0.7); EOSINOPHILS % (AUTO) 2.5 % (0.0-7.0); HEMATOCRIT 28.9 % (31.2-41.9); HEMOGLOBIN 9.5 g/dL (10.9-14.3); LYMPHOCYTES # (AUTO) 0.7 K/uL (20.0-40.0); LYMPHOCYTES % (AUTO) 12.2 % (20.5-51.5); MEAN CORPUSCULAR HEMOGLOBIN 32.1 uug (24.7-32.8); MEAN CORPUSCULAR HGB CONC 33 g/dL (32.3-35.6); MEAN CORPUSCULAR VOLUME 98.1 fL (75.5-95.3); MONOCYTES # (AUTO) 0.4 K/uL (2.0-10.0); MONOCYTES % (AUTO) 8.3 % (0.0-11.0); NEUTROPHILS # (AUTO) 4.1 K/uL (1.8-8.9); NEUTROPHILS % (AUTO) 76.3 % (38.5-71.5); PLATELET COUNT (AUTO) 68 K/uL (179-408); RED BLOOD CELL COUNT(AUTO) 2.95 MIL/uL (3.63-4.92); WHITE BLOOD COUNT (AUTO) 5.4 K/uL (3.8-11.8)
[2020-04-23 07:03] LABS: CREATININE 4.6 mg/dL (0.6-1.3); MAGNESIUM 2.7 mg/dL (1.8-2.4); PHOSPHOROUS 2.8 mg/dL (2.5-4.9); POTASSIUM 5.5 mmol/L (3.5-5.1)
[2020-04-23] MEDS: FERROUS SULFATE 325 MG TABEC PO SCH (08:20)
[2020-04-23] MEDS: ASPIRIN 81 MG TAB.CHEW PO SCH (08:20)
[2020-04-23] MEDS: SEVELAMER CARBONATE 800 MG TABLET PO SCH ×2 (08:20→11:12)
[2020-04-23] MEDS: ZINC SULFATE 220 MG CAPSULE PO SCH (08:21)
[2020-04-23] MEDS: ASCORBIC ACID 500 MG TABLET PO SCH (08:21)
[2020-04-23] MEDS: GABAPENTIN 100 MG CAPSULE PO SCH ×2 (08:21→12:30)
[2020-04-23] MEDS: ENOXAPARIN SODIUM 30 MG/0.3 ML DISP.SYRIN SQ SCH (08:22)
[2020-04-23] MEDS: CALCITRIOL 0.25 MCG CAPSULE PO SCH (08:23)
[2020-04-23] MEDS ORDERED: CARVEDILOL 12.5 MG TABLET PO SCH (09:00)
[2020-04-23] MEDS: AMLODIPINE 5 MG TABLET PO SCH (11:13)
[2020-04-23] MEDS ORDERED: MENT71OI TOP (11:55)
[2020-04-23] MEDS ORDERED: INSU100V28 SQ (11:55)
[2020-04-23] MEDS ORDERED: HYDR-894 PO (11:55)
[2020-04-23] MEDS ORDERED: ENOX30DI SQ (11:55)
[2020-04-23] MEDS ORDERED: CARV12.52 PO (11:55)
[2020-04-23] MEDS ORDERED: Blood Sugar Diagnostic VI (11:55)
[2020-04-23 11:56] VITALS: BP 153/78
--- NOTE | 2020-04-23 12:43 | NUR ---
MAX RN REPORT GIVEN TO DETENTION RN BRICE
[2020-04-23] MEDS ORDERED: hydrALAZINE HCL 25 MG TABLET PO SCH (14:00)
[2020-04-23 16:37] VITALS: BP 145/65
--- NOTE | 2020-04-23 16:37 | NUR ---
dc orders received noted and carried out,dc instruction and rn report given to the rn in [email or web address] heplock per md orders,pt left the facility via ambulances in stable condition
== END 2020-04-23 17:30 | DRG 133 ==
LOC: ER 21:53 → TELE3 04-20 03:01 → MEDSURG3 04-20 11:51
PROVIDERS: ADMIT Nurse Practitioner Acute Care; ATTEND Registered Nurse
PROC: 5A1D70Z Performance of Urinary Filtration, Intermittent, Less than 6 Hours Per Day (ICD-10-PCS; principal; 2020-04-20)
DX: J96.01 Acute respiratory failure with hypoxia (principal); I13.2 Hypertensive heart and chronic kidney disease with heart failure and with stage 5 chronic kidney disease, or end stage renal disease; I50.33 Acute on chronic diastolic (congestive) heart failure; N18.6 End stage renal disease; E11.22 Type 2 diabetes mellitus with diabetic chronic kidney disease; D63.1 Anemia in chronic kidney disease; E03.9 Hypothyroidism, unspecified; E78.5 Hyperlipidemia, unspecified; I25.10 Atherosclerotic heart disease of native coronary artery without angina pectoris; K21.9 Gastro-esophageal reflux disease without esophagitis; Z79.4 Long term (current) use of insulin; Z86.19 Personal history of other infectious and parasitic diseases; Z99.2 Dependence on renal dialysis; G93.40 Encephalopathy, unspecified; Z86.73 Personal history of transient ischemic attack (TIA), and cerebral infarction without residual deficits; H54.8 Legal blindness, as defined in USA
CPT/HCPCS: 36415; 36600; 70030-TC; 71045; 71275; 83605; 83615; 83735; 84100; 84443; 85025; 85730; 86140; 87040; 87400; 90937; 93005; 93307; A4663; G0378; J1650; J1815; J7050; Q9967; U0003

== ENCOUNTER 2021-09-24 14:57 | Inpatient (IN) | payer OTHER ==
[~2021-09-24] VITALS: Ht 157.5 cm; Wt 77.3 kg
[~2021-09-24 14:57] MED LIST changes: +Blood Sugar Diagnostic VI; +CALC0.5C3 PO; -CARV12.5 PO; +CARV12.52 PO; +DEXT50DI8 IV; +ENOX30DI SQ; -GLUC1KIT IM; +HYDR-894 PO; +INSU100V28 SQ; -MAG30ORA PO; +MENT71OI TOP; +PHOS NAK PO; -PROT946L PO
--- NOTE | 2021-09-24 15:00 | NUR ---
At bedside to examine pt.
[2021-09-24] MEDS ORDERED: VANCOMYCIN IV 1,000 MG in IV DEXTROSE 5% 250 ML IV ONE (15:30)
[2021-09-24] MEDS ORDERED: IV NORMAL SALINE 1000 ML BAG IV ONE (15:30)
[2021-09-24] MEDS ORDERED: VANCOMYCIN IV 200 ML ONE (15:58)
[2021-09-24 16:01] LABS: CARBON DIOXIDE 37 mmol/L (21-32); CHLORIDE 100 mmol/L (98-107); CREATININE 3.2 mg/dL (0.6-1.3); GLUCOSE 127 mg/dL (74-106); POTASSIUM 3.8 mmol/L (3.5-5.1); UREA NITROGEN, BLOOD 17 mg/dL (7-18)
[2021-09-24 16:14] LABS: HEMATOCRIT 38.3 % (31.2-41.9); MEAN CORPUSCULAR HEMOGLOBIN 31.1 uug (24.7-32.8); MEAN CORPUSCULAR VOLUME 98.6 fL (75.5-95.3); PLATELET COUNT (AUTO) 124 K/uL (179-408)
[2021-09-24 16:15] LABS: ALANINE AMINOTRANSFERASE 13 U/L (14-59); ALKALINE PHOSPHATASE 75 U/L (50-136); ASPARTATE AMINOTRANSFERASE 12 U/L (15-37); BILIRUBIN,DIRECT 0.2 mg/dL (0.0-0.2); BILIRUBIN,TOTAL 0.5 mg/dL (0.2-1.0)
[2021-09-24] MEDS ORDERED: ALBU2.5V38 IH (16:26)
[2021-09-24] MEDS ORDERED: SODI454P4 PO (16:26)
--- NOTE | 2021-09-24 19:21 | NUR ---
Report given to Rosa Maria Moctezuma
[2021-09-24 20:00] VITALS: BP 140/59
[2021-09-24] MEDS ORDERED: Medication Not On Formulary EA (Acetaminophen 650 MG) PO PRN (20:00)
[2021-09-24] MEDS ORDERED: ONDANSETRON 4 MG/2 ML VIAL IV PRN (20:00)
[2021-09-24] MEDS ORDERED: ALBUTEROL SULFATE 2.5 MG/3 ML NEBU IH PRN (20:00)
[2021-09-24] MEDS ORDERED: DOCUSATE SODIUM 100 MG CAPSULE PO PRN (20:00)
--- NOTE | 2021-09-24 20:00 | NUR ---
Report given to LIZBETH Herrmann. Patient placed to room 312.
[2021-09-24] MEDS ORDERED: ALBUTEROL SULFATE 2.5 MG/3 ML NEBU ONE (20:25)
[2021-09-24 20:45] VITALS: BP 140/59
--- NOTE | 2021-09-24 20:50 | NUR ---
Patient transported to room 312 via gurney accompanied by 1 staff member, without any incident. BECKY. LANCE.
[2021-09-24] MEDS ORDERED: ACETAMINOPHEN 325 MG TABLET PO PRN (21:00)
[2021-09-24] MEDS ORDERED: Medication Not On Formulary EA (Atorvastatin Calcium (Lipitor) 40 MG) PO SCH (21:00)
[2021-09-24] MEDS: CARVEDILOL 12.5 MG TABLET PO SCH (21:00)
[2021-09-24] MEDS: PIPERACILLIN/TAZO 2.25 G in IV DEXTROSE 5% 50 ML IV SCH (21:36)
[2021-09-24] MEDS: SERTRALINE HCL 50 MG TABLET PO SCH (21:38)
[2021-09-24] MEDS: AMLODIPINE 5 MG TABLET PO SCH (21:38)
[2021-09-24] MEDS: hydrALAZINE HCL 50 MG TABLET PO SCH (21:38)
[2021-09-24] MEDS: ATORVASTATIN 40 MG TABLET PO SCH (21:38)
[2021-09-24] MEDS: ENOXAPARIN SODIUM 30 MG/0.3 ML DISP.SYRIN SQ SCH (21:39)
[2021-09-24] MEDS ORDERED: INSULIN REGULAR, HUMAN 300 UNIT/3 ML VIAL SQ PRN (21:45)
[2021-09-24] MEDS ORDERED: DEXTROSE 50% 50 ML DISP.SYRIN IV PRN (21:45)
[2021-09-24] MEDS ORDERED: hydrALAZINE HCL 25 MG TABLET PO SCH (22:00)
[2021-09-25] VITALS: BP 133/65
[2021-09-25 04:00] VITALS: BP 150/57
[2021-09-25] MEDS: PIPERACILLIN/TAZO 2.25 G in IV DEXTROSE 5% 50 ML IV SCH ×3 (05:14→21:32)
[2021-09-25] MEDS: hydrALAZINE HCL 50 MG TABLET PO SCH ×3 (05:15→21:45)
--- NOTE | 2021-09-25 05:39 | NUR ---
Admitted to Tele, SR on monitor. Denies pain or SOB at this time. Pt is ukrainian speaking, able to make needs known, AOx4. IV site intact. Pt is anuric. Safety protocols kept in place, will endorse to day shift.
[2021-09-25] MEDS: LEVOTHYROXINE SODIUM 50 MCG TABLET PO SCH (06:19)
[2021-09-25] MEDS: BLOOD SUGAR DIAGNOSTIC 1 EACH STRIP VI SCH ×4 (06:28→21:53)
--- NOTE | 2021-09-25 06:30 | NUR ---
Was unable to take pictures of wounds due to camera on unit not working at this time.
[2021-09-25 07:14] LABS: HEMATOCRIT 35.1 % (31.2-41.9); MEAN CORPUSCULAR HEMOGLOBIN 31.7 uug (24.7-32.8); MEAN CORPUSCULAR VOLUME 97.1 fL (75.5-95.3); PLATELET COUNT (AUTO) 120 K/uL (179-408)
[2021-09-25 07:31] LABS: BILIRUBIN,TOTAL 0.5 mg/dL (0.2-1.0); MAGNESIUM 2.5 mg/dL (1.8-2.4); PHOSPHOROUS 2.6 mg/dL (2.5-4.9); POTASSIUM 3.8 mmol/L (3.5-5.1); TOTAL PROTEIN, SERUM 6.7 g/dL (6.4-8.2)
[2021-09-25 08:04] LABS: THYROID STIMULATING HORMONE 2.6 mIU/mL (0.358-3.740)
[2021-09-25 08:06] LABS: VANCOMYCIN,RANDOM 18.3 ug/mL (18.0-26.0)
[2021-09-25] MEDS: CALCITRIOL 0.25 MCG CAPSULE PO SCH (08:53)
[2021-09-25] MEDS: FOLIC ACID/VITAMIN B COMP W-C TABLET PO SCH (08:54)
[2021-09-25] MEDS: CARVEDILOL 12.5 MG TABLET PO SCH ×2 (08:54→21:27)
[2021-09-25] MEDS: SEVELAMER CARBONATE 800 MG TABLET PO SCH ×3 (08:54→17:35)
[2021-09-25] MEDS: GABAPENTIN 300 MG CAPSULE PO SCH ×3 (08:54→17:35)
[2021-09-25] MEDS: ASPIRIN 81 MG TAB.CHEW PO SCH (08:55)
[2021-09-25] MEDS: ZINC SULFATE 220 MG CAPSULE PO SCH (08:55)
[2021-09-25] MEDS: ASCORBIC ACID 500 MG TABLET PO SCH (08:55)
[2021-09-25] MEDS: AMLODIPINE 5 MG TABLET PO SCH ×2 (08:55→21:26)
[2021-09-25] MEDS: PANTOPRAZOLE SODIUM 40 MG TABLET.DR PO SCH (08:59)
[2021-09-25] MEDS ORDERED: GABAPENTIN 100 MG CAPSULE PO SCH (09:00)
[2021-09-25] MEDS ORDERED: SODIUM POLYSTYRENE SULFONATE 30 GM PO SCH (09:00)
[2021-09-25] MEDS ORDERED: Medication Not On Formulary EA (Vit B Cmplx 3/Fa/Vit C/Biotin (Rena-Vite Rx Tablet) 1 EA PO SCH (09:00)
[2021-09-25 09:04] VITALS: BP 157/57
[2021-09-25 11:08] VITALS: BP 142/50
--- NOTE | 2021-09-25 11:16 | NUR ---
WOUND CARE CONSULT: PT PRESENTS WITH RASH/PEELING SKIN TO SACRAL/BUTTOCKS AREA WITH OPEN AREA TO RT BUTTOCK DUE TO INCONTINENCE, PRESENT ON ADMISSION. PT ALSO NOTED TO HAVE AREAS OF SKIN DISCOLORATION TO LOWER LEGS, ESPECIALLY TO RT LOWER LEG WITH TWO RAISED AREAS, PRESENT ON ADMISSION. (NO DRAINAGE NOTED). DPM CONSULT CALLED TO DR FREEDMAN. RECOMMENDATIONS MADE FOR SKIN PROTECTION. DISCUSSED WITH NURSING STAFF. IN AGREEMENT WITH PLAN OF CARE. Addendum: 09/25/21 at 1118 by VINCENZO ZAVALA RN Amended: Links added.
[2021-09-25] MEDS ORDERED: VANCOMYCIN IV 500 MG in IV DEXTROSE 5% 100 ML IV PRN (12:00)
[2021-09-25] MEDS: FLUCONAZOLE 200 MG/NS 100ML IV 100 MG in PREMIXED 1 EACH IV SCH (14:38)
[2021-09-25 15:19] VITALS: BP 131/45
--- NOTE | 2021-09-25 16:39 | NUR ---
Patient seen by Dr. Morales. Received orders to dialyze patient today with standard solution.
--- NOTE | 2021-09-25 19:00 | NUR ---
Patient is awake, alert, primarily Austrian speaking. Denies pain at this time. NC @2LPM. Hemodialysis ongoing. VSS. NAD. IV site intact and patent. No erythema, bleeding or infiltration noted. Bed at lowest position, brakes on, siderailsx2. Call light within reach. Will continue to monitor.
[2021-09-25 20:12] VITALS: BP 114/52
--- NOTE | 2021-09-25 21:20 | NUR ---
Hemodialysis done, 2L out. NAD.
[2021-09-25] MEDS: ATORVASTATIN 40 MG TABLET PO SCH (21:26)
[2021-09-25] MEDS: SERTRALINE HCL 50 MG TABLET PO SCH (21:35)
[2021-09-25] MEDS: ENOXAPARIN SODIUM 30 MG/0.3 ML DISP.SYRIN SQ SCH (21:44)
[2021-09-26 00:24] VITALS: BP 129/52
--- NOTE | 2021-09-26 02:00 | NUR ---
Resting comfortably. No significant change of condition noted. Will continue to monitor.
[2021-09-26] MEDS: PIPERACILLIN/TAZO 2.25 G in IV DEXTROSE 5% 50 ML IV SCH ×3 (03:25→20:12)
[2021-09-26 04:42] VITALS: BP 133/54
[2021-09-26] MEDS: LEVOTHYROXINE SODIUM 50 MCG TABLET PO SCH (06:15)
[2021-09-26] MEDS: hydrALAZINE HCL 50 MG TABLET PO SCH ×3 (06:15→22:00)
[2021-09-26] MEDS: PANTOPRAZOLE SODIUM 40 MG TABLET.DR PO SCH (06:15)
[2021-09-26] MEDS: BLOOD SUGAR DIAGNOSTIC 1 EACH STRIP VI SCH ×3 (06:47→17:11)
[2021-09-26 07:07] LABS: HEPATITIS A AB, IgM Negative (Negative); HEPATITIS B SURFACE AG Negative (Negative)
[2021-09-26 07:13] LABS: CREATININE 3.3 mg/dL (0.6-1.3); POTASSIUM 3.6 mmol/L (3.5-5.1)
[2021-09-26] MEDS: SEVELAMER CARBONATE 800 MG TABLET PO SCH ×3 (08:41→16:50)
[2021-09-26] MEDS: ASPIRIN 81 MG TAB.CHEW PO SCH (08:41)
[2021-09-26] MEDS: ZINC SULFATE 220 MG CAPSULE PO SCH (08:41)
[2021-09-26] MEDS: FOLIC ACID/VITAMIN B COMP W-C TABLET PO SCH (08:41)
[2021-09-26] MEDS: GABAPENTIN 300 MG CAPSULE PO SCH ×3 (08:41→16:50)
[2021-09-26] MEDS: ASCORBIC ACID 500 MG TABLET PO SCH (08:41)
[2021-09-26] MEDS: CALCITRIOL 0.25 MCG CAPSULE PO SCH (08:43)
[2021-09-26] MEDS: AMLODIPINE 5 MG TABLET PO SCH ×2 (08:45→20:47)
[2021-09-26] MEDS: CARVEDILOL 12.5 MG TABLET PO SCH ×2 (08:46→20:47)
[2021-09-26 11:14] VITALS: BP 132/42
--- NOTE | 2021-09-26 13:36 | NUR ---
PATIENT HAD DIALYSIS AND ABOUT 678 ML REMOVED BUT PER THE DIALYSIS NURSE PATIENT ONLY TOLERATED ONE HOUR AND 50 MINS BLOOD PRESSURE AT THIS TIME IS 108/[address] CRABTREE AWARE.
[2021-09-26] MEDS: FLUCONAZOLE 200 MG/NS 100ML IV 100 MG in PREMIXED 1 EACH IV SCH (15:09)
[2021-09-26] MEDS: CLONIDINE HCL 0.1 MG TABLET PO PRN (15:13)
[2021-09-26 15:15] VITALS: BP 165/58
[2021-09-26] MEDS: CLOTRIMAZOLE 1% CREAM 30 GM TUBE TOP SCH ×2 (17:18→20:47)
--- NOTE | 2021-09-26 18:00 | NUR ---
FIRST STEP MARIJA PLACED ON HER BED ORDERED TURNED AND REPOSITIONED MADE COMFORTABLE.
[2021-09-26 20:34] VITALS: BP 112/56
[2021-09-26] MEDS: ENOXAPARIN SODIUM 30 MG/0.3 ML DISP.SYRIN SQ SCH (20:46)
[2021-09-26] MEDS: SERTRALINE HCL 50 MG TABLET PO SCH (20:47)
[2021-09-26] MEDS: REMEDY ESSENTIAL ZINC PASTE 113 GM TOP SCH (20:47)
[2021-09-27] MEDS: PIPERACILLIN/TAZO 2.25 G in IV DEXTROSE 5% 50 ML IV SCH ×3 (04:03→20:28)
[2021-09-27 04:45] VITALS: BP 140/52
[2021-09-27] MEDS: hydrALAZINE HCL 50 MG TABLET PO SCH ×3 (05:59→22:01)
[2021-09-27] MEDS: LEVOTHYROXINE SODIUM 50 MCG TABLET PO SCH (06:00)
[2021-09-27] MEDS: PANTOPRAZOLE SODIUM 40 MG TABLET.DR PO SCH (06:00)
[2021-09-27 06:28] LABS: HEMATOCRIT 32.4 % (31.2-41.9); MEAN CORPUSCULAR VOLUME 96.9 fL (75.5-95.3); PLATELET COUNT (AUTO) 80 K/uL (179-408)
[2021-09-27 06:47] LABS: CREATININE 3.3 mg/dL (0.6-1.3); MAGNESIUM 2.1 mg/dL (1.8-2.4); PHOSPHOROUS 3.5 mg/dL (2.5-4.9); POTASSIUM 3.5 mmol/L (3.5-5.1); VANCOMYCIN,RANDOM 16.4 ug/mL (18.0-26.0)
--- NOTE | 2021-09-27 08:00 | NUR ---
RECEIVED PATIENT IN BED ASLEEP WAS EASILY AROUSABLE ALERT AND COOPERATIVE NO S/S OF PAIN OR DISCOMFORTS AT THIS TIME RIGHT ARM AV SHUNT IS PATENT WITH BRUIT AND THRILL MOSTLY VENEZUELAN BUT ABLE TO MAKE SIMPLE NEEDS KNOWN AT THIS TIME REPOSITIONED FOR COMFORT MAX ASSIST FOR ALL ADL MADE COMFORTABLE WILL CONTINUE TO OBSERVE
[2021-09-27] MEDS: ASPIRIN 81 MG TAB.CHEW PO SCH (08:12)
[2021-09-27] MEDS: ASCORBIC ACID 500 MG TABLET PO SCH (08:12)
[2021-09-27] MEDS: ZINC SULFATE 220 MG CAPSULE PO SCH (08:12)
[2021-09-27] MEDS: SEVELAMER CARBONATE 800 MG TABLET PO SCH ×3 (08:12→16:14)
[2021-09-27] MEDS: GABAPENTIN 300 MG CAPSULE PO SCH ×3 (08:12→16:14)
[2021-09-27] MEDS: FOLIC ACID/VITAMIN B COMP W-C TABLET PO SCH (08:12)
[2021-09-27] MEDS: CARVEDILOL 12.5 MG TABLET PO SCH ×2 (08:13→20:29)
[2021-09-27] MEDS: CALCITRIOL 0.25 MCG CAPSULE PO SCH (08:13)
[2021-09-27] MEDS: AMLODIPINE 5 MG TABLET PO SCH ×2 (08:13→20:29)
[2021-09-27] MEDS: CLOTRIMAZOLE 1% CREAM 30 GM TUBE TOP SCH ×2 (08:17→20:40)
[2021-09-27] MEDS: REMEDY ESSENTIAL ZINC PASTE 113 GM TOP SCH ×2 (08:17→20:40)
[2021-09-27 11:33] VITALS: BP 114/54
--- NOTE | 2021-09-27 11:33 | NUR ---
MAP PLOTTER HERE AND DIALYSIS STARTED ORDERED.
[2021-09-27] MEDS: FLUCONAZOLE 200 MG/NS 100ML IV 100 MG in PREMIXED 1 EACH IV SCH (14:00)
--- NOTE | 2021-09-27 15:00 | NUR ---
DIALYSIS COMPLETED ORDERED AND 1.5 LITERS REMOVED PATIENT TOLERATED PROCEDURE WELL.
[2021-09-27] MEDS ORDERED: VANCOMYCIN IV 500 MG in IV DEXTROSE 5% 100 ML IV ONE (16:00)
[2021-09-27 16:08] VITALS: BP 123/47
--- NOTE | 2021-09-27 19:30 | NUR ---
Received pt awake, alert and orientedx2. Pt in no acute distress. Iv intact., Pt on 2l nasal cannula. Safety and comfort provided. Will continue to monitor.
[2021-09-27 20:15] VITALS: BP 150/88
[2021-09-27] MEDS: ENOXAPARIN SODIUM 30 MG/0.3 ML DISP.SYRIN SQ SCH (20:30)
[2021-09-27] MEDS: SERTRALINE HCL 50 MG TABLET PO SCH (20:32)
[2021-09-28] MEDS: PIPERACILLIN/TAZO 2.25 G in IV DEXTROSE 5% 50 ML IV SCH ×3 (03:28→19:38)
[2021-09-28 04:15] VITALS: BP 156/55
[2021-09-28] MEDS: hydrALAZINE HCL 50 MG TABLET PO SCH ×4 (06:00→21:30)
[2021-09-28] MEDS: PANTOPRAZOLE SODIUM 40 MG TABLET.DR PO SCH ×2 (06:06→06:13)
[2021-09-28] MEDS: LEVOTHYROXINE SODIUM 50 MCG TABLET PO SCH ×2 (06:06→06:13)
--- NOTE | 2021-09-28 06:51 | NUR ---
Pt slept comfortably. Pt turned and repositioned. Prescribed medication given and pt tolerated it well. Pt refused her daytime medication which are Synthroid, Protonix and Hydralazine. Vital signs within normal limit. Safety and comfort provided. Will endorse to incoming nurse.
--- NOTE | 2021-09-28 07:36 | NUR ---
AWAKE ALERT X2 VERBALLY RESPONDS BUT AT TIMES DIFFICULT TO UNDERSTAND ALL NEEDS MUST BE ANTICIPATED AND SATISFIED.MAX ASSIST FOR ALL ADL ON FIRST STEP MARIJA TURNED AND REPOSITIONED Q2H O2 IN PROGRESS WITH SOB RIGHT ARM AV SHUNT WITH BRUIT AND THRILL LEFT HAND HEPLOCK IS INTACT PATIENT MADE COMFORTABLE WILL CONTINUE TO OBSERVE.
[2021-09-28] MEDS: ZINC SULFATE 220 MG CAPSULE PO SCH (08:10)
[2021-09-28] MEDS: ASPIRIN 81 MG TAB.CHEW PO SCH (08:10)
[2021-09-28] MEDS: SEVELAMER CARBONATE 800 MG TABLET PO SCH ×3 (08:10→16:22)
[2021-09-28] MEDS: ASCORBIC ACID 500 MG TABLET PO SCH (08:10)
[2021-09-28] MEDS: CALCITRIOL 0.25 MCG CAPSULE PO SCH (08:10)
[2021-09-28] MEDS: FOLIC ACID/VITAMIN B COMP W-C TABLET PO SCH (08:10)
[2021-09-28] MEDS: GABAPENTIN 300 MG CAPSULE PO SCH ×3 (08:10→16:22)
[2021-09-28] MEDS: CARVEDILOL 12.5 MG TABLET PO SCH ×3 (08:11→21:00)
[2021-09-28] MEDS: AMLODIPINE 5 MG TABLET PO SCH ×3 (08:11→21:00)
[2021-09-28] MEDS: REMEDY ESSENTIAL ZINC PASTE 113 GM TOP SCH ×2 (08:20→20:35)
[2021-09-28] MEDS: CLOTRIMAZOLE 1% CREAM 30 GM TUBE TOP SCH ×2 (08:20→20:35)
[2021-09-28 11:55] VITALS: BP 93/51
--- NOTE | 2021-09-28 15:26 | NUR ---
ALERT TOLERATING HER IV ATB ORDERED WITH NO ADVERSE OR ALLERGIC REACTIONS AT THIS TIME O2 IN PROGRESS WITH NO SOB NOT IN DISTRESS.
[2021-09-28 16:21] VITALS: BP 122/32
--- NOTE | 2021-09-28 18:00 | NUR ---
NO DISTRESS AT THIS TIME SLEEPING ON AND OFF.
--- NOTE | 2021-09-28 19:30 | NUR ---
Received pt awake,alert and orientedx3. Pt in no acute distress. Iv intact.Pt on first step mattress. Pt on 2l nasal cannula. . Safety and comfort provided. Will continue to monitor.
[2021-09-28] MEDS: ENOXAPARIN SODIUM 30 MG/0.3 ML DISP.SYRIN SQ SCH (19:40)
[2021-09-28 20:00] VITALS: BP 133/64
[2021-09-28] MEDS: SERTRALINE HCL 50 MG TABLET PO SCH ×2 (20:34→21:00)
--- NOTE | 2021-09-28 22:38 | NUR ---
PT refused her Coreg 6.25mg, Norvasc 5mg, Zoloft 75mg and Apresoline 100mg medications. Pt educated regarding pros and cons of not taking her medications. Pt still refused to take it. Safety and comfort provided. Will continue to monitor.
[2021-09-29] VITALS: BP 117/59
[2021-09-29] MEDS: PIPERACILLIN/TAZO 2.25 G in IV DEXTROSE 5% 50 ML IV SCH ×2 (03:28→11:52)
[2021-09-29 04:00] VITALS: BP 153/61
[2021-09-29] MEDS: hydrALAZINE HCL 50 MG TABLET PO SCH ×2 (05:56→13:21)
[2021-09-29] MEDS: LEVOTHYROXINE SODIUM 50 MCG TABLET PO SCH (06:05)
[2021-09-29] MEDS: PANTOPRAZOLE SODIUM 40 MG TABLET.DR PO SCH (06:05)
--- NOTE | 2021-09-29 06:23 | NUR ---
Pt slept comfortably.. Pt in no acute distress. Pt on 2l nasal cannula. Iv intact..Prescribed medication given and pt tolerated it well. Pt turned and repositioned. Dressing changed. Safety and comfort provided. All needs are met. Vital signs within normal limit. Will endorse to incoming nurse for continuity of care.
[2021-09-29 07:09] LABS: HEMATOCRIT 32.2 % (31.2-41.9); MEAN CORPUSCULAR HEMOGLOBIN 32.7 uug (24.7-32.8); MEAN CORPUSCULAR VOLUME 96.5 fL (75.5-95.3); PLATELET COUNT (AUTO) 93 K/uL (179-408)
[2021-09-29 07:26] LABS: BILIRUBIN,TOTAL 0.5 mg/dL (0.2-1.0); CREATININE 4.6 mg/dL (0.6-1.3); MAGNESIUM 2.4 mg/dL (1.8-2.4); PHOSPHOROUS 4.8 mg/dL (2.5-4.9); POTASSIUM 4.4 mmol/L (3.5-5.1); TOTAL PROTEIN, SERUM 6.8 g/dL (6.4-8.2)
--- NOTE | 2021-09-29 07:40 | NUR ---
RECEIVED PATIENT IN BED ASLEEP EASILY AROUSABLE ON ROUNDS TURNED AND REPOSITIONED Q2H NO S/S OF PAIN OR DISCOMFORTS AT THIS TIME ON O2 WITH NO SOB RIGHT ARM WITH AV SHUNT WITH BRUIT AND THRILL CALL LIGHTS ARE WITHIN EASY REACH MADE COMFORTABLE AND WILL CONTINUE TO OBSERVE.
[2021-09-29] MEDS: ASPIRIN 81 MG TAB.CHEW PO SCH (08:28)
[2021-09-29] MEDS: ZINC SULFATE 220 MG CAPSULE PO SCH (08:28)
[2021-09-29] MEDS: GABAPENTIN 300 MG CAPSULE PO SCH ×3 (08:28→16:16)
[2021-09-29] MEDS: SEVELAMER CARBONATE 800 MG TABLET PO SCH ×3 (08:28→16:15)
[2021-09-29] MEDS: FOLIC ACID/VITAMIN B COMP W-C TABLET PO SCH (08:28)
[2021-09-29] MEDS: ASCORBIC ACID 500 MG TABLET PO SCH (08:29)
[2021-09-29] MEDS: CALCITRIOL 0.25 MCG CAPSULE PO SCH (08:30)
[2021-09-29] MEDS: CLOTRIMAZOLE 1% CREAM 30 GM TUBE TOP SCH (08:31)
[2021-09-29] MEDS: REMEDY ESSENTIAL ZINC PASTE 113 GM TOP SCH (08:31)
[2021-09-29] MEDS: CARVEDILOL 12.5 MG TABLET PO SCH ×2 (08:32→20:09)
[2021-09-29] MEDS: AMLODIPINE 5 MG TABLET PO SCH ×2 (08:32→20:09)
--- NOTE | 2021-09-29 08:32 | NUR ---
PATIENT IS FOR DIALYSIS TODAY SCHEDULED BLOOD PRESSURE MEDICATIONS HELD AT THIS TIME
[2021-09-29 11:52] VITALS: BP 112/71
[2021-09-29] MEDS ORDERED: PIPE2.257 IV (12:04)
[2021-09-29] MEDS ORDERED: GABA300C PO (12:04)
[2021-09-29] MEDS ORDERED: CALC0.254 PO (12:04)
[2021-09-29] MEDS ORDERED: HYDR50TA68 PO (12:04)
[2021-09-29] MEDS ORDERED: SEVE800T7 PO (12:04)
[2021-09-29 16:29] VITALS: BP 142/60
--- NOTE | 2021-09-29 16:30 | NUR ---
MID LINE INSERTED TO HER LEFT FOREARM GAUGE 18 TOLERATED WELL PATIENT WILL CONTINUE ON IV ANTIBIOTICS AT THE REHAB
--- NOTE | 2021-09-29 17:30 | NUR ---
DIALYSIS COMPLETED ORDERED AND 2 LITERS REMOVED PATIENT TOLERATED WELL.
--- NOTE | 2021-09-29 18:00 | NUR ---
PATIENT WILL BE DISCHARGED TONIGHT TO [facility]IL[facility] SERVICE TIME 8PM ENDORSED
--- NOTE | 2021-09-29 19:30 | NUR ---
RECEIVED PT AWAKE, ALERT AND ORIENTEDX3. PT IN NO ACUTE DISTRESS. PT WILL BE DISCHARGE WITH MIDLINE. SAFETY AND COMFORT PROVIDED. AWAITING FOR AMBULANCE FOR HER TO BE PICKED UP AT [facility].
--- NOTE | 2021-09-29 19:40 | NUR ---
[facility] Nobody is picking up the phone. Left a message in answering machine to call back here at [facility].
[2021-09-29 20:09] VITALS: BP 160/53
[2021-09-29] MEDS: CLONIDINE HCL 0.1 MG TABLET PO PRN (20:09)
[2021-09-29] MEDS: SERTRALINE HCL 50 MG TABLET PO SCH (20:09)
--- NOTE | 2021-09-29 20:55 | NUR ---
Called [facility] and Nile(RN) told me that she will let her nursing yarding supervisor to callback here for the report.
--- NOTE | 2021-09-29 21:10 | NUR ---
PT DISCHARGED AND WHEELED OUT VIA GURNEY. DISCHARGE PAPERS GIVEN TO ARTIE COHEN OF [facility]. BELONGING LIST GIVEN. PT IN NO ACUTE DISTRESS. VITAL SIGNS WITHIN NORMAL LIMIT. ID BAND TAKEN OFF. MIDLINE ACCESS INTACT. CALLED [facility]
--- NOTE | 2021-09-29 21:27 | NUR ---
GAVE REPORT TO CATHY NIEVES OF [facility].
== END 2021-09-29 21:05 | DRG 137 ==
LOC: ER 15:04 → TELE3 20:32 → MEDSURG3 09-26 01:04
PROVIDERS: ADMIT Internal Medicine; ATTEND Nurse Practitioner Acute Care
DX: J69.0 Pneumonitis due to inhalation of food and vomit (principal); I50.33 Acute on chronic diastolic (congestive) heart failure; G92.8 Other toxic encephalopathy; D69.6 Thrombocytopenia, unspecified; D68.59 Other primary thrombophilia; N18.6 End stage renal disease; L02.415 Cutaneous abscess of right lower limb; F01.50 Vascular dementia, unspecified severity, without behavioral disturbance, psychotic disturbance, mood disturbance, and anxiety; Z99.2 Dependence on renal dialysis; Z79.4 Long term (current) use of insulin; I13.2 Hypertensive heart and chronic kidney disease with heart failure and with stage 5 chronic kidney disease, or end stage renal disease; E03.9 Hypothyroidism, unspecified; E78.5 Hyperlipidemia, unspecified; E66.9 Obesity, unspecified; G89.29 Other chronic pain; H54.8 Legal blindness, as defined in USA; I25.10 Atherosclerotic heart disease of native coronary artery without angina pectoris; Z20.822 Contact with and (suspected) exposure to COVID-19; Z86.16 Personal history of COVID-19; Z79.890 Hormone replacement therapy; R53.1 Weakness; S80.11XA Contusion of right lower leg, initial encounter; X58.XXXA Exposure to other specified factors, initial encounter; Y93.9 Activity, unspecified; Y92.129 Unspecified place in nursing home as the place of occurrence of the external cause; G62.9 Polyneuropathy, unspecified; Z74.09 Other reduced mobility; Z86.73 Personal history of transient ischemic attack (TIA), and cerebral infarction without residual deficits; I73.9 Peripheral vascular disease, unspecified; Z68.31 Body mass index [BMI] 31.0-31.9, adult
CPT/HCPCS: 36415; 70030-TC; 71045; 73590; 83550; 83605; 83735; 84100; 84443; 85025; 85730; 86706; 86709; 86803; 87040; 87340; 90937; 93005; 93307; A4663; A6209; C1758; G0378; J1450; J1650; J1815; J2543; J3370; J7030; J7040; J7060